=== PATIENT | female | born 1945 | race Caucasian/White ===

== ENCOUNTER 2021-03-14 08:14 | Day surgery (SDC) | payer MEDICARE, OTHER ==
[2021-03-07 11:41] LABS: BASOPHILS # (AUTO) 0.1 X10'3 (0-0.2); BASOPHILS % (AUTO) 0.8 % (0-1); EOSINOPHILS # (AUTO) 0.4 X10'3 (0-0.9); EOSINOPHILS % (AUTO) 5.9 % (0-6); LYMPHOCYTES # (AUTO) 1.5 X10'3 (1.1-4.8); LYMPHOCYTES % (AUTO) 23.4 % (21-51); MEAN CORPUSCULAR HEMOGLOBIN 30.1 PG (27.0-31.0); MEAN CORPUSCULAR VOLUME 91.4 FL (78-98); MEAN PLATELET VOLUME 8.7 FL (7.4-10.4); MONOCYTES # (AUTO) 0.6 X10'3 (0-0.9); MONOCYTES % (AUTO) 8.9 % (2-12); PRE OP HEMATOCRIT 39.3 % (35.0-45.0); PRE OP PLATELET COUNT 194 X10'3 (140-440); RED BLOOD COUNT 4.31 X10'6 (4.20-5.60); RED CELL DISTRIBUTION WIDTH 14.2 % (11.5-14.5)
[2021-03-07 11:56] LABS: ALBUMIN 3.7 G/DL (3.4-5.0); ALBUMIN/GLOBULIN RATIO 1.1 (1.1-1.5); ALKALINE PHOSPHATASE 86 IU/L (46-116); BLOOD UREA NITROGEN 20 MG/DL (7-18); CALCIUM 9.1 MG/DL (8.5-10.1); CHLORIDE 107 MMOL/L (99-107); PRE OP ALT 19 U/L (30-65); PRE OP ANION GAP 8 (8-16); PRE OP AST 19 U/L (10-37); PRE OP BILIRUB, TOTAL 0.5 MG/DL (0.0-1.0); PRE OP GLUCOSE 102 MG/DL (70-104); PRE OP POTASSIUM 4.1 MMOL/L (3.4-5.1); PRE OP SODIUM 142 MMOL/L (135-145); TOTAL CARBON DIOXIDE 27.2 MMOL/L (24-32); eGFR 70 ML/MIN
[~2021-03-14] VITALS: Ht 175.3 cm; Wt 102.9 kg
[2021-03-14] VITALS (9 sets, daily range): BP systolic 112–179; BP diastolic 58–81
[~2021-03-14 08:14] MED LIST: ALBU18HF2 INH; BUPIVAcaine/PF 2.5 mg/ml (0.25%) 30ml vial ONE; FLUT1DIS14 INH; GUAI600T45 PO; LIDOcaine 1% 30ml preserv. free vial ONE; VITAMINS; cefazolin/dext.iso 2gm/100ml IV ONE; famotidine 20mg tablet PO ONE; ringers solution, lacted 1,000 ML IV SCH
[2021-03-14] MEDS ORDERED: fentaNYL/PF 50MCG/1 ML 2ML syringe ONE ×2 (09:33→10:14)
[2021-03-14] MEDS ORDERED: sevoflurane 250ml liquid IH ONE (09:45)
[2021-03-14] MEDS ORDERED: ringers solution, lacted 1,000 ML IV SCH (09:50)
[2021-03-14] MEDS ORDERED: ondansetron/PF 4mg/2ml inj IV PRN (09:50)
[2021-03-14] MEDS ORDERED: morphine 2 MG/ML inj. syringe IV PRN (09:50)
[2021-03-14] MEDS ORDERED: HYDROmorphone/PF 0.2 MG/ML SYRINGE IV PRN (09:50)
[2021-03-14] MEDS ORDERED: ondansetron/PF 4mg/2ml inj ONE (10:42)
[2021-03-14] MEDS ORDERED: propofol inj 20 ML IV ONE (10:42)
[2021-03-14] MEDS ORDERED: neostigmine methylsulfate 1 MG/ML 10ml vial ONE (10:42)
[2021-03-14] MEDS ORDERED: LIDOcaine 2% (20mg/ml) 5ml vial ONE (10:42)
[2021-03-14] MEDS ORDERED: glycopyrrolate 0.2mg/ml inj ONE (10:42)
[2021-03-14] MEDS ORDERED: dexamethasone sod phosphate 4mg/ml inj. ONE (10:42)
[2021-03-14] MEDS ORDERED: rocuronium 10mg/ml inj IV ONE (10:42)
[2021-03-14] MEDS ORDERED: acetaminophen 1,000mg/100ml IV 100 ML IV ONE (10:43)
[2021-03-14] MEDS ORDERED: hydrALAZINE 20mg/ml inj. IV ONE (10:43)
[2021-03-14] MEDS ORDERED: BUPIVAcaine/PF 2.5mg/ml (0.25%) 10ml vial ONE (10:49)
--- NOTE | 2021-03-14 11:35 | NUR ---
ADMITTED TO PACU FROM OR ACCOMPANIED BY ANESTHESIA. INTIAL PHYSICAL ASSESSMENT DONE AND RECORDED. REPORT RECEIVED FROM ANESTHESIA.
--- NOTE | 2021-03-14 11:35 | NUR ---
ADMITTED TO PACU FROM OR ACCOMPANIED BY ANESTHESIA. INTIAL PHYSICAL ASSESSMENT DONE AND RECORDED. REPORT RECEIVED FROM ANESTHESIA.
[2021-03-14] MEDS ORDERED: oxyCODONE/APAP 5-325mg tablet PO PRN ×2 (12:00)
[2021-03-14] MEDS ORDERED: meperidine/PF 25mg/ml syringe IV ONE (12:10)
--- NOTE | 2021-03-14 13:00 | NUR ---
DISCHARGE CRITERIA MET, DISCHARGE INSTRUCTIONS GIVEN, DEMONSTRATES VERBAL UNDERSTANDING. DISCHARGED HOME IN GOOD CONDITION.
== END 2021-03-14 13:00 | disposition home or self-care (01) ==
LOC: PAS 08:14
PROVIDERS: ATTEND Surgery
DX: K43.0 Incisional hernia with obstruction, without gangrene (principal); Z20.822 Contact with and (suspected) exposure to COVID-19; J45.909 Unspecified asthma, uncomplicated; F32.9 Major depressive disorder, single episode, unspecified; E66.9 Obesity, unspecified; Z68.32 Body mass index [BMI] 32.0-32.9, adult; Z90.49 Acquired absence of other specified parts of digestive tract; Z79.899 Other long term (current) drug therapy; Z98.890 Other specified postprocedural states; Z98.41 Cataract extraction status, right eye; Z98.42 Cataract extraction status, left eye; Z88.1 Allergy status to other antibiotic agents; Z88.5 Allergy status to narcotic agent; Z88.8 Allergy status to other drugs, medicaments and biological substances
CPT/HCPCS: 36415; 49655; 64488; 80053; 82948; 85025; 93005; C1781; J0131; J0360; J1100; J2001; J2405; J2704; J2710; J3010; J3490; U0003; U0005; A4215; A4618; J7120